=== PATIENT | male | born 1975 | race Caucasian/White ===

== ENCOUNTER 2022-12-07 10:19 | Emergency (ER) | payer OTHER ==
[2022-12-07 11:02] VITALS: RESP 18; BMI 33.2
[2022-12-07] MEDS ORDERED: ACETAMINOPHEN 1000 MG/100 ML BAG IVPB ONE (11:15)
[2022-12-07] MEDS ORDERED: ONDANSETRON 4 MG/2 ML VIAL IVPUSH ONE (11:15)
[2022-12-07 12:19] LABS: HEMATOCRIT 43.6 % (35.4-49); HEMOGLOBIN 14.3 G/dL (11.7-16.9); MCH 29.8 pg (25.7-33.7); MCHC 32.8 g/dl (32.0-35.9); MEAN CELL VOLUME 91.1 fl (80-96); MEAN PLT VOLUME 9.3 fl (7.5-11.1); PLATELET COUNT 254.2 10^3/uL (134-434); RBC 4.79 10^6/uL (4.00-5.60); RDW 14.6 % (11.9-15.9); WHITE BLOOD COUNT 11.3 10^3/uL (4.0-10.8)
[2022-12-07 13:08] LABS: URINE MUCUS FEW
[2022-12-07] MEDS ORDERED: ACETAMINOPHEN INJECTION 100 ML IVPB ONE (13:08)
[2022-12-07] MEDS ORDERED: ONDANSETRON 4 MG/2 ML VIAL ONE (13:08)
[2022-12-07 13:10] LABS: PLATELET ESTIMATE ADEQUATE
[2022-12-07 13:55] LABS: POTASSIUM 4.9 mmol/L (3.5-5.1)
[2022-12-07 13:57] LABS: ALBUMIN 3.5 g/dl (3.4-5.0); CALCIUM 9.6 mg/dL (8.5-10.1)
[2022-12-07 13:58] LABS: BLOOD UREA NITROGEN 16.9 mg/dL (7-18)
[2022-12-07 14:02] LABS: BILIRUBIN,TOTAL 0.5 mg/dL (0.2-1); TOT PROT 7.2 g/dl (6.4-8.2)
[2022-12-07 14:06] LABS: CREATININE 1.1 mg/dL (0.55-1.3)
[2022-12-07 15:31] VITALS: BP 128/81; PULSE 76; TEMP 98.9
== END 2022-12-07 15:52 | disposition home or self-care (01) ==
LOC: FER 10:19
PROC: 3E033NZ Introduction of Analgesics, Hypnotics, Sedatives into Peripheral Vein, Percutaneous Approach (ICD-10-PCS; principal; 2022-12-07)
PROC: 3E033GC Introduction of Other Therapeutic Substance into Peripheral Vein, Percutaneous Approach (ICD-10-PCS; 2022-12-07)
DX: N50.812 Left testicular pain (principal); N20.0 Calculus of kidney
CPT/HCPCS: 36415; 74176-TC; 76775-TC; 76870-TC; 80053; 81003; 81015; 85027; 87086; 87491; 87591; 99285-25

== ENCOUNTER 2024-07-26 13:36 | Emergency (ER) | payer OTHER ==
[2024-07-26 13:44] VITALS: BP 122/76; PULSE 67; RESP 18; TEMP 98.4; BMI 33.2
[2024-07-26 15:34] LABS: HEMOGLOBIN 14.6 g/dL (13.7-17.5); MEAN CELL VOLUME 89.2 fl (79.0-92.2); MEAN PLT VOLUME 10.2 fl (9.4-12.4); PLATELET COUNT 305 x10^3/uL (163-337); RDW 12.7 % (12.1-15.9)
[2024-07-26 15:55] LABS: POTASSIUM 4.3 mmol/L (3.5-5.1)
[2024-07-26 16:08] LABS: ALBUMIN 3.7 g/dl (3.4-5.0)
[2024-07-26 16:09] LABS: BILIRUBIN,TOTAL 0.5 mg/dL (0.2-1)
[2024-07-26 16:10] LABS: BLOOD UREA NITROGEN 17.2 mg/dL (7-18)
[2024-07-26 16:11] LABS: CREATININE 0.9 mg/dL (0.55-1.3); MAGNESIUM 2.2 mg/dL (1.8-2.4)
[2024-07-26 16:13] LABS: CALCIUM 10.2 mg/dL (8.5-10.1)
[2024-07-26 16:53] LABS: INR 1.24 (0.83-1.09); PROTHROMBIN TIME (PATIENT) 13.5 SEC (9.7-13.0)
== END 2024-07-26 19:02 | disposition home or self-care (01) ==
LOC: JER 13:36
DX: R10.13 Epigastric pain (principal)
CPT/HCPCS: 36415; 74177-TC; 80053; 83690; 83735; 85027; 85610; 86850; 86900; 86901; 99285-25